=== PATIENT | male | born 1950 | race Caucasian/White ===

== ENCOUNTER 2016-08-14 11:52 | Inpatient (IN) ==
--- NOTE | 2016-08-14 11:56 | Emergency Department Note ---
Disposition Clinical Impression: COPD exacerbation, Hypoxia, Community acquired pneumonia Disposition: Admitted As Inpatient Condition: Fair Referrals: Herlinda Muller DO [Primary Care Provider] - Forms: ED Satisfaction Letter SOB HPI - General Chief Complaint: ED Chest Pain Stated Complaint: short winded, fever,fmd advised to go to er, ekg Time Seen by Provider: 08/14/16 11:55 Source: patient Mode of arrival: private vehicle Limitations: no limitations Nursing Notes Reviewed: Yes Vital Signs Reviewed: Yes - History of Present Illness Patient relates he has been fighting a cough and congestion for about 9 weeks there has been worse the last month and severe for the last week. He states he has a wet cough is productive of copious phlegm and he states it has been green to yellow. With this he has had progressive shortness of breath as well as dyspnea on exertion. He states he can only walk about 100 feet before he needs to rest. Throughout this he has had some dull chest pain that is sore with coughing. He denies any lower extremity swelling, pain or mobilization. He denies any respiratory episodes like this before and denies history of COPD or emphysema. He has not been having fevers, chills or sweats. He states he has been exposed to several others with similar problems area he states his ex- and her sister has been having the same problem. He did see his primary care provider today, Herlinda Muller D.O., who ordered who ordered outpatient EKG, x -ray and laboratory. He had refused to go to the emergency Department from the office but has decided to present here after he has had his outpatient testing completed. We have contacted to his physician's office for a copy of his EKG. Patient arrives here with a tight, congested cough and a room air oxygen saturation of 88%. Pt Subjective Complaint: shortness of breath, cough Onset (ago): week(s) Severity: moderate, severe Consistency/Duration: gradually worsening Improves with: rest Worsens with: exertion, movement, coughing Associated symptoms: Reports: chest pain, pain with inspiration, cough, wheezing , sputum production. Denies: fever, orthopnea, lower extremity pain, polyuria, polydipsia, parasthesias, palpitations, hemoptysis, diaphoresis, nausea/vomiting , syncope, abdominal pain, rash Treatment prior to arrival: none Cough present: Yes Cough Description: Voluntary, Productive, Moist, Hacking, Rattling Cough Frequency: Intermittent Sputum production: Yes Sputum Amount: Moderate Sputum Color: Yellow, Green - Related Data Home oxygen amount: none Home Medications Medication Instructions Recorded Confirmed Albuterol Sulfate [Albuterol 2 IH Q4HR 08/14/16 Inhaler] Carvedilol 12.5 mg PO BID 08/14/16 08/14/16 Gemfibrozil [Lopid] 600 mg PO BIDWM 08/14/16 08/14/16 GuaiFENesin ER [Mucinex] 600 mg PO BID 08/14/16 08/14/16 Insulin ASPART [Novolog Flexpen] unit SQ TID 08/14/16 Lisinopril [Zestril] 40 mg PO DAILY 08/14/16 08/14/16 Metformin HCl [Fortamet] 500 mg PO BID 08/14/16 08/14/16 Pravastatin Sodium [Pravachol] 40 mg PO DAILY 08/14/16 08/14/16 Pregabalin [Lyrica] 100 mg PO BID 08/14/16 08/14/16 SitaGLIPtin [Januvia] 100 mg PO DAILY 08/14/16 08/14/16 hydroCHLOROthiazide 25 mg PO DAILY 08/14/16 08/14/16 [Hydrochlorothiazide] predniSONE [Prednisone] 50 mg PO DAILY 08/14/16 08/14/16 Previous Rx's Medication Instructions Recorded Montelukast [Singulair] 10 mg PO DAILY #20 tablet 06/26/16 Allergies Allergy/AdvReac Type Severity Reaction Status Date / Time No Known Allergies Allergy Verified 08/14/16 11:55 All systems ED: reviewed and negative except as stated. Past Medical History - Past Medical History Attestation: Yes The following information was validated with the patient. Source: patient, old records reviewed, nursing notes reviewed Medical history: Reports: coronary artery disease, diabetes, hyperlipidemia, hypertension, myocardial infarction (2009), renal disease, other (Obesity, polio with residual right leg deficits and chronic pain, restless leg syndrome) . Denies: asthma, COPD, DVT, pulmonary embolus Surgical history: Reports: angioplasty/stent (2009) Psychiatric history: Reports: no psych history - Social History Smoking Status: Current every day smoker Smokeless Tobacco Status: No Alcohol use: Reports: none Drug use: Reports: none Physical Exam - General Limitations: no limitations General appearance: alert, in distress - Head Head exam: atraumatic, normocephalic, normal inspection - Eye Eye exam: Present: normal appearance, PERRL, EOMI. Absent: scleral icterus, conjunctival injection - ENT ENT exam: normal exam, normal oropharynx, mucous membranes moist - Neck Neck exam: Present: normal inspection, full ROM, trachea midline - Chest Chest inspection: Present: normal inspection, symmetric chest wall rise. Absent : tenderness - Respiratory Respiratory exam: Present: respiratory distress, wheezes, prolonged expiratory phase. Absent: accessory muscle use - Cardiovascular Cardiovascular exam: Present: regular rate, normal rhythm, normal heart sounds. Absent: tachycardia - Abdominal Exam Abdominal exam: Present: soft, Non-Tender, normal bowel sounds. Absent: tenderness, distention, guarding, rebound, rigidity - Extremities Exam Extremities exam: Present: normal inspection, full ROM, normal capillary refill. Absent: tenderness, pedal edema, calf tenderness - Expanded Lower Extremity Exam Neurovascular/Tendon exam: Present: normal capillary refill. Absent: motor deficit, sensory deficit, tendon deficit Gait: not tested/not observed (Patient arrives from x-ray in a wheelchair. He did transfer to the bed without difficulty.) - Back Exam Back exam: Present: normal inspection, full ROM. Absent: tenderness, CVA tenderness (R), CVA tenderness (L), vertebral tenderness - Neurological Exam Neurological exam: Present: alert, oriented X3 - Psychiatric Psychiatric exam: Present: normal affect, normal mood - Skin Skin exam: Present: warm, dry, intact, normal color. Absent: rash, diaphoresis , pallor Course Course Narrative: 1330: With return of all labs and imaging, care is discussed with the patient and with Dr. Grant. Verbal orders are taken for the patient's observation to the hospital. Vital Signs Temperature 98.8 F 08/14/16 11:56 Pulse Rate 90 08/14/16 11:56 Respiratory Rate 20 08/14/16 11:56 Blood Pressure 95/56 08/14/16 11:56 O2 Sat by Pulse Oximetry 92 08/14/16 11:56 Temperature 98.8 F 08/14/16 12:02 Pulse Rate 79 08/14/16 13:47 Respiratory Rate 18 08/14/16 13:47 Blood Pressure 103/60 08/14/16 13:47 O2 Sat by Pulse Oximetry 96 08/14/16 13:47 Oxygen Delivery Oxygen Delivery Nasal Cannula Shortness of Breath/Dyspnea - Differential Diagnosis Likely: acute exacerbation of chronic obstructive airways disease, pneumonia, asthma with exacerbation - Medical Records Medical records reviewed: Yes I reviewed the patient's medical records. - Lab Data Lab results reviewed: Yes I reviewed the patient's lab results. Lab results narrative: Patient's lab drawn just prior to arrival shows a white count 11.4, hemoglobin 0.9 and platelets of 342. Chemistries are remarkable for a creatinine of 1.91 which is a little higher than his usual. He has an ALT of 8. I have added blood cultures, lactic acid and troponin to his laboratories. Lab Results 08/14/16 08/14/16 Range/Units 11:35 12:06 VBG Lactic Acid 1.7 (0.5-2.2) mmol/L Troponin I 0.03 (0-0.03) ng/mL - Radiology Data Radiology results reviewed: Yes I reviewed the patient's radiology results. 2 view chest x-ray is performed just prior to arrival to department. This shows patchiness in the right lower lung without acute effusion, pneumothorax, foreign body or heart failure. The cardiac silhouette is normal. I do not see abnormality to the osseous structures of the chest. This is on my interpretation. Radiology impression: XR/XR chest 2V IMPRESSION: Right lower lobe pneumonia and probable tiny right pleural effusion. Recommend follow-up imaging to confirm resolution D/ / Bulmaro Eugene MD / Bulmaro Eugene MD - EKG Data EKG attestation: Yes I reviewed and interpreted this EKG. EKG shows normal: Reports: sinus rhythm, axis, intervals, QRS complexes, ST-T waves Rate: Reports: normal (85) Interpretation: Reports: no acute changes (Baseline artifact), unchanged when compared to prior tracing (date) (06/29/2016)
[2016-08-14] MEDS ORDERED: Ipratropium/Albuterol Neb 3 ML IH ONE (12:07)
[2016-08-14] MEDS ORDERED: methylPREDNISolone 125 MG/2 ML VIAL IVP ONE (12:07)
[2016-08-14] MEDS ORDERED: Levofloxacin 500 MG/100 ML 500 MG/100 ML BAG IVPB SCH (12:08)
[2016-08-14] MEDS ORDERED: 0.9 % Sodium Chloride 1,000 ML IVC SCH ×2 (12:15→14:28)
[2016-08-14] MEDS ORDERED: *HR* Dextrose 50 % in Water (Syg) 50 ML SYRINGE IVP PRN (14:28)
[2016-08-14] MEDS ORDERED: Dextrose Gel 15 GM PO PRN ×2 (14:28)
[2016-08-14] MEDS ORDERED: D5% in Water 1,000 ML IVC PRN (14:28)
[2016-08-14] MEDS ORDERED: Naloxone 0.4 MG/ML INJ IVP PRN (14:28)
[2016-08-14] MEDS ORDERED: Ondansetron 4 MG/2 ML VIAL IVP PRN (14:28)
[2016-08-14] MEDS ORDERED: Acetaminophen 325 MG TABLET PO PRN (14:28)
[2016-08-14] MEDS ORDERED: Albuterol 2.5 MG/3 ML NEBULIZER IH PRN (14:28)
[2016-08-14] MEDS ORDERED: MOM Conc 10 ML UD.LIQ PO PRN (14:28)
[2016-08-14] MEDS ORDERED: Ipratropium/Albuterol Neb 3 ML IH SCH (16:00)
[2016-08-14] MEDS: Insulin LISPRO 300 UNITS/3 ML VIAL SQ SCH ×2 (16:28→20:16)
[2016-08-14] MEDS: predniSONE 20 MG TABLET PO SCH (16:29)
--- NOTE | 2016-08-14 19:23 | Internal Med History&Physical ---
Date of Encounter: 08/14/16 Time of Encounter: 18:50 Assessment and Plan (1) Community acquired pneumonia Current visit: Yes Status: Acute He has been started on Levaquin. I will add lactobacillus. Will order chest CT to further evaluate. (2) COPD (chronic obstructive pulmonary disease) Current visit: Yes Status: Chronic Presumed. He has not had PFTs. Will order chest CT as per above. Will order room air oximetry prior to discharge. Qualifiers: COPD type: unspecified COPD Qualified Code(s): J44.9 - Chronic obstructive pulmonary disease, unspecified (3) CKD (chronic kidney disease) stage 3, GFR 30-59 ml/min Current visit: Yes Status: Acute We will monitor renal indices periodically. (4) Anemia Current visit: Yes Status: Acute Suspect secondary to chronic kidney disease with superimposed aspirin and Plavix use. We will order anemia testing in a.m. Qualifiers: Anemia type: unspecified type Qualified Code(s): D64.9 - Anemia, unspecified (5) DM type 2 (diabetes mellitus, type 2) Current visit: Yes Status: Chronic We will order hemoglobin A1c. Continue home diabetic regimen and do Accu-Cheks with SSI. 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 Vuong is a 66 year old male who came to emergency room stating he had increased dyspnea with cough productive of green-yellow sputum for 2-3 weeks. He had sensation of chills with fever at home. He was evaluated in emergency room with right lower lobe pneumonia seen on chest x-ray. He was admitted to [facility] floor for ongoing care needs. He denies previous episode of pneumonia. His respiratory history is significant for having smoked since age 8 up to one and half packs per day. He denies diagnosis of COPD/emphysema but has not had PFTs. He states he was diagnosed with SERAFIN but could not afford [id number] BiPAP at the time of the testing approximately 6 years ago. Past Med Surg Social Fam HX - Past Medical History Medical history: coronary artery disease, diabetes, hyperlipidemia, hypertension , myocardial infarction, renal disease, other Psychiatric history: no psych history - Past Surgical History Surgical History: angioplasty/stent - Social History Smoking Status: Current every day smoker Packs per day: 1 Smokeless Tobacco Status: No Alcohol use: none Drug use: none Internal Medicine - H&P: Meds Montelukast [Singulair] 10 mg PO DAILY #20 tablet 06/26/16 [Rx] Albuterol Sulfate [Albuterol Inhaler] 2 IH Q4HR 08/14/16 [History] Carvedilol 12.5 mg PO BID 08/14/16 [History] Gemfibrozil [Lopid] 600 mg PO BIDWM 08/14/16 [History] GuaiFENesin ER [Mucinex] 600 mg PO BID 08/14/16 [History] Insulin ASPART [Novolog Flexpen] unit SQ TID 08/14/16 [History] Lisinopril [Zestril] 40 mg PO DAILY 08/14/16 [History] Metformin HCl [Fortamet] 500 mg PO BID 08/14/16 [History] Pravastatin Sodium [Pravachol] 40 mg PO DAILY 08/14/16 [History] Pregabalin [Lyrica] 100 mg PO BID 08/14/16 [History] SitaGLIPtin [Januvia] 100 mg PO DAILY 08/14/16 [History] hydroCHLOROthiazide [Hydrochlorothiazide] 25 mg PO DAILY 08/14/16 [History] predniSONE [Prednisone] 50 mg PO DAILY 08/14/16 [History] Allergies No Known Allergies Allergy (Verified 08/14/16 11:55) All Systems PM: A 10-system review of systems was performed and is negative for pertinent findings except as documented above in the HPI. Review of systems: Gen.: He states his weight has been stable past few months Cardiovascular: Has history of hypertension and known ASHD status post OK 2009 with a single stent placed. He has not had a follow-up heart catheter or stress test since then. He had echocardiogram 01/17/2015 which showed LVEF of 60-65% with mild LV diastolic dysfunction. There was no significant valvular abnormality and no evidence of pulmonary hypertension. He states he has carotid stenosis but is uncertain of the details. He is being treated medically with aspirin and Plavix. He denies DVT or pulmonary embolus Respiratory: As per history of present illness GI: He denies disorders of his liver gallbladder or exocrine pancreas. 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 He was found to have cysts on his kidneys on January 2015 abdominal/pelvis CT. Neurologic: He states he has RLS. He claims he had polio affecting his right leg in childhood. He denies large distribution strokes or seizures Endocrine: He was diagnosed with DM 2 approximately 2006. He has hyperlipidemia but denies thyroid disease Hematology/oncology: He had anemia on blood work in emergency room. He denied previous knowledge of anemia. He denies internal malignancy. Psychiatric: He has diagnoses of anxiety. He had 3 sisters within the last 4 months and feels sad but does not take medication for depression. He denies other mental health diagnoses Musk skeletal: Denies arthritis gout or other bone joint or muscle disorders. - Constitutional Vitals: Temp Pulse Resp BP Pulse Ox 98.4 F 85 18 132/72 92 08/14/16 18:58 08/14/16 18:58 08/14/16 18:58 08/14/16 18:58 08/14/16 18:58 Exam: Gen.: He is a well-developed well-nourished male who appears in minimal distress at present time. HEENT: Head is atraumatic and normocephalic. Eyes: EOMI. There is no scleral icterus. Mouth: Mucosa is moist. Neck: Supple and nontender. There is no thyromegaly or adenopathy noted. Heart: Regular without murmurs gallops or ectopics. Lungs: No wheezes or crackles are heard. Abdomen: Soft and nontender. No masses or guarding are noted. Extremities: There is no cyanosis edema or clubbing noted. Dorsalis pedis and posterior tibial pulses are trace palpable bilaterally. Neurologic: Mental status: He is talkative and a good historian. Cranial nerves : Smile is symmetric. Forehead wrinkles bilaterally. Tongue protrudes midline. EOMI. Motor: There is no pronator drift. Cerebellar: Finger to nose is intact bilaterally. Skin: Warm and dry
[2016-08-14] MEDS: Pregabalin 50 MG CAPSULE PO SCH (20:16)
[2016-08-14] MEDS ORDERED: *HR* Metformin 500 MG TABLET PO SCH (21:00)
[2016-08-14] MEDS ORDERED: Insulin DETEMIR 100 UNIT/ML per UNIT SQ ONE (21:00)
[2016-08-15] MEDS ORDERED: Insulin Human Regular 20 UNIT in 0.9 % Sodium Chloride 10 ML IV ONE ×4 (00:04→02:09)
[2016-08-15] MEDS ORDERED: Insulin LISPRO 300 UNITS/3 ML VIAL SQ ONE (00:11)
[2016-08-15] MEDS ORDERED: Insulin Human Regular 300 UNIT/3 ML per UNIT IV ONE ×2 (00:12→02:15)
[2016-08-15] MEDS ORDERED: Insulin DETEMIR 100 UNIT/ML per UNIT SQ ONE ×2 (00:30→02:05)
[2016-08-15] MEDS ORDERED: Pregabalin 50 MG CAPSULE PO STA (04:46)
[2016-08-15] MEDS ORDERED: traMADol 50 MG TABLET PO STA (04:48)
[2016-08-15] MEDS: *HR* Enoxaparin 30 MG/0.3 ML SYRINGE SQ SCH (05:12)
[2016-08-15 06:37] LABS: Basophils % 0.2 %; Hematocrit 32.7 % (37.5-50.1); Hemoglobin 10.8 g/dL (12.9-16.9); Immature Granulocytes % 1.4 % (0-4); Lymphocytes # 0.8 K/mcL (0.6-4.6); Lymphocytes % 7.9 %; Mean Corpuscular Hemoglobin 29.3 pg (28.0-33.3); Mean Corpuscular Volume 88.9 fL (83.0-100.0); Mean Platelet Volume 10.2 fL (9.4-12.4); Monocytes # 0.4 K/mcL (0.0-1.3); Monocytes % 3.8 %; Neutrophils # 8.8 K/mcL (1.6-8.9); Platelet Count 341 K/mcL (140-400); Red Blood Count 3.68 M/mcL (4.19-5.50); Red Cell Distribution Width 14.7 % (11.5-14.5); Segmented Neutrophils % 86.7 %
[2016-08-15 06:52] LABS: Albumin 2.7 g/dL (3.5-5.0); Albumin/Globulin Ratio 0.5 (1.1-2.2); Bilirubin,Total 0.5 mg/dL (0.2-1.2); Calcium 8.6 mg/dL (8.6-10.8); Magnesium 1.9 mg/dL (1.6-2.6); Potassium 4.4 mEq/L (3.5-4.5); Total Protein 7.7 g/dL (6.0-8.3)
[2016-08-15 07:13] LABS: Thyroid Stimulating Hormone 0.371 mcIU/mL (0.350-4.840)
[2016-08-15] MEDS: predniSONE 20 MG TABLET PO SCH ×2 (07:53→16:27)
[2016-08-15] MEDS: Pregabalin 50 MG CAPSULE PO SCH ×2 (07:53→20:51)
[2016-08-15] MEDS: Insulin LISPRO 300 UNITS/3 ML VIAL SQ SCH ×4 (07:56→20:43)
[2016-08-15] MEDS ORDERED: Lisinopril 20 MG TABLET PO SCH (09:00)
[2016-08-15] MEDS ORDERED: hydroCHLOROthiazide 25 MG TABLET PO SCH (09:00)
[2016-08-15] MEDS ORDERED: *HR* SitaGLIPtin 25 MG TABLET PO SCH ×2 (09:00)
[2016-08-15 09:02] LABS: Hemoglobin A1C 13.1 %
[2016-08-15 10:05] LABS: Folate 11.1 ng/mL (7.0-31.4)
--- NOTE | 2016-08-15 15:35 | Internal Med Progress Note ---
Date of Encounter: 08/15/16 Time of Encounter: 15:25 - Assessment and plan (1) Community acquired pneumonia Current Visit: Yes Status: Acute Assessment and plan: August 15. Continue Levaquin and lactobacillus. (2) COPD (chronic obstructive pulmonary disease) Current Visit: Yes Status: Chronic Assessment and plan: August 15. Continue present regimen. We will check room air oximetry prior to discharge. Qualifiers: COPD type: unspecified COPD Qualified Code(s): J44.9 - Chronic obstructive pulmonary disease, unspecified (3) CKD (chronic kidney disease) stage 3, GFR 30-59 ml/min Current Visit: Yes Status: Chronic Assessment and plan: August 15. Continue to monitor renal indices. (4) Anemia Current Visit: Yes Status: Acute Assessment and plan: August 15. Anemia testing showed no factor deficiency. Qualifiers: Anemia type: unspecified type Qualified Code(s): D64.9 - Anemia, unspecified (5) DM type 2 (diabetes mellitus, type 2) Current Visit: Yes Status: Chronic Assessment and plan: August 15. Poor control with hemoglobin A1c 13.1%. Will increase Levemir and decrease prednisone. Qualifiers: Diabetes mellitus complication status: with kidney complications Diabetes mellitus complication detail: with chronic kidney disease Diabetes mellitus long-term insulin use: with long-term use Chronic kidney disease stage: stage 3 (moderate) Qualified Code(s): E11.22 - Type 2 diabetes mellitus with diabetic chronic kidney disease; N18.3 - Chronic kidney disease, stage 3 ( moderate); Z79.4 - technician terminal and repeater (current) use of insulin - Subjective Interval history: August 15. He states he had a "rough night" because of leg cramps. He does not complain of dyspnea. - Constitutional Vitals: Temp Pulse Resp BP Pulse Ox 97.5 F L 74 16 99/60 98 08/15/16 10:57 08/15/16 10:57 08/15/16 10:57 08/15/16 10:57 08/15/16 10:57 Exam: He is resting comfortably on the side of bed and appears in no acute distress. His affect is bright and cheerful. I reviewed his medications and lab results. I reviewed his chest CT report. Internal Medicine: Result - Labs CBC & Chem 7: 08/15/16 04:25 08/15/16 04:25 Labs: Short CBC 08/15/16 Range/Units 04:25 WBC 10.2 (4.3-11.1) K/mcL Hgb 10.8 L (12.9-16.9) g/dL Hct 32.7 L (37.5-50.1) % Plt Count 341 (140-400) K/mcL Neutrophils # 8.8 (1.6-8.9) K/mcL BMP 08/14/16 08/15/16 08/15/16 23:25 01:25 04:25 Sodium 135 L Potassium 4.4 Chloride 97 L Carbon Dioxide 18 L BUN 41 H D Creatinine 2.70 H Glucose 751 H* 678 H* 392 H Calcium 8.6 Liver Function 08/15/16 Range/Units 04:25 Total Bilirubin 0.5 (0.2-1.2) mg/dL AST 9 (5-34) Units/L ALT 8 (0-55) Units/L Alkaline Phosphatase 134 H (38-126) Units/L Albumin 2.7 L (3.5-5.0) g/dL Consult Discharge Plan - Plan Referrals: Herlinda Muller DO [Primary Care Provider] - 1 week
[2016-08-15] MEDS ORDERED: *HR* HYDROcodone/Acet 5/325 mg TABLET PO PRN (15:41)
[2016-08-15] MEDS ORDERED: Insulin DETEMIR 100 UNIT/ML X5UNITS SQ SCH ×2 (21:00)
[2016-08-16] MEDS: *HR* Enoxaparin 30 MG/0.3 ML SYRINGE SQ SCH (06:05)
[2016-08-16 06:24] LABS: Basophils % 0.2 %; Hematocrit 31.9 % (37.5-50.1); Hemoglobin 10.4 g/dL (12.9-16.9); Immature Granulocytes % 0.4 % (0-4); Lymphocytes % 9.1 %; Mean Corpuscular HGB Conc 32.6 g/dL (31.6-35.5); Mean Corpuscular Hemoglobin 29.2 pg (28.0-33.3); Mean Corpuscular Volume 89.6 fL (83.0-100.0); Mean Platelet Volume 10.1 fL (9.4-12.4); Monocytes # 0.6 K/mcL (0.0-1.3); Monocytes % 4.4 %; Neutrophils # 10.8 K/mcL (1.6-8.9); Platelet Count 343 K/mcL (140-400); Red Blood Count 3.56 M/mcL (4.19-5.50); Red Cell Distribution Width 14.6 % (11.5-14.5); Segmented Neutrophils % 85.9 %
[2016-08-16 06:47] LABS: Calcium 8.3 mg/dL (8.6-10.8); Potassium 4.6 mEq/L (3.5-4.5)
[2016-08-16 07:00] LABS: Lymphocytes # 1.2 K/mcL (0.6-4.6)
[2016-08-16 07:12] VITALS: BP 132/77
[2016-08-16] MEDS: Insulin LISPRO 300 UNITS/3 ML VIAL SQ SCH (07:46)
[2016-08-16] MEDS: predniSONE 20 MG TABLET PO SCH (07:47)
[2016-08-16] MEDS: Pregabalin 50 MG CAPSULE PO SCH (07:49)
--- NOTE | 2016-08-16 10:11 | Discharge Summary ---
Date of Encounter: 08/16/16 Time of Encounter: 09:50 - Discharge Diagnosis (1) Community acquired pneumonia Priority: Primary Status: Acute (2) COPD (chronic obstructive pulmonary disease) Priority: Secondary Status: Chronic Qualifiers: COPD type: unspecified COPD Qualified Code(s): J44.9 - Chronic obstructive pulmonary disease, unspecified (3) CKD (chronic kidney disease) stage 3, GFR 30-59 ml/min Priority: Secondary Status: Chronic (4) Anemia Priority: Secondary Status: Acute Qualifiers: Anemia type: unspecified type Qualified Code(s): D64.9 - Anemia, unspecified (5) DM type 2 (diabetes mellitus, type 2) Priority: Secondary Status: Chronic Qualifiers: Diabetes mellitus complication status: with kidney complications Diabetes mellitus complication detail: with chronic kidney disease Diabetes mellitus intermediate insulin use: with termite helper use Chronic kidney disease stage: stage 3 (moderate) Qualified Code(s): E11.22 - Type 2 diabetes mellitus with diabetic chronic kidney disease; N18.3 - Chronic kidney disease, stage 3 ( moderate); Z79.4 - group home (current) use of insulin - Discharge Medications Prescriptions: Insulin Glargine [Lantus] 40 unit SQ HS 30 Days Lactobacillus [Culturelle] 1 each PO BID #10 cap.sprink levoFLOXacin [Levaquin] 500 mg PO DAILY #5 tablet PredniSONE [Deltasone] 10 mg PO BID #5 tablet Home Medications: Montelukast [Singulair] 10 mg PO DAILY #20 tablet 06/26/16 [Rx] Albuterol Sulfate [Albuterol Inhaler] 2 IH Q4HR 08/14/16 [History] Carvedilol 12.5 mg PO BID 08/14/16 [History] Gemfibrozil [Lopid] 600 mg PO BIDWM 08/14/16 [History] GuaiFENesin ER [Mucinex] 600 mg PO BID 08/14/16 [History] Insulin ASPART [Novolog Flexpen] unit SQ TID 08/14/16 [History] Lisinopril [Zestril] 40 mg PO DAILY 08/14/16 [History] Metformin HCl [Fortamet] 500 mg PO BID 08/14/16 [History] Pravastatin Sodium [Pravachol] 40 mg PO DAILY 08/14/16 [History] Pregabalin [Lyrica] 100 mg PO BID 08/14/16 [History] SitaGLIPtin [Januvia] 100 mg PO DAILY 08/14/16 [History] Insulin Glargine [Lantus] 40 unit SQ HS 30 Days 08/16/16 [Rx] Lactobacillus [Culturelle] 1 each PO BID #10 cap.sprink 08/16/16 [Rx] PredniSONE [Deltasone] 10 mg PO BID #5 tablet 08/16/16 [Rx] levoFLOXacin [Levaquin] 500 mg PO DAILY #5 tablet 08/16/16 [Rx] Allergies/Adverse Reactions: Allergies No Known Allergies Allergy (Verified 08/14/16 11:55) Date of admission: 08/14/16 19:45 Primary care physician: Herlinda Muller DO - Patient Status Disposition: Home, Self-Care Condition: Fair Functional capacity at discharge: independent ambulation Overall status at discharge: patient is progressing back to baseline - Discharge Instructions Follow Up With: Herlinda Muller DO [Primary Care Provider] - 1 week - Diet and Activity Activity: resume usual activities as tolerated Diet: diabetic diet Hospital course: Mr. Vuong is a 66 year old male who came to emergency room stating he had increased dyspnea with cough productive of green-yellow sputum for 2-3 weeks. He had sensation of chills with fever at home. He was evaluated in emergency room with right lower lobe pneumonia seen on chest x-ray. He was admitted to [facility] floor for ongoing care needs. Initial orders were written by the emergency room physician. I saw him on August 14 and performed the history and physical. He was started empirically on Levaquin. I added lactobacillus. A chest CT was done for further evaluation. There was bilateral with right greater than left heterogeneous and nodular infiltrates seen, greatest within the right upper lobe. Follow-up to complete resolution was recommended. I will let his PCP order follow-up imaging as recommended. Blood cultures returned negative. He remained afebrile during his hospital stay. The CBC was 12.6 the day of discharge. He will receive 5 additional days of antibiotic and probiotic at discharge. Creatinine was 2.7 on August 15 but had improved 2.1 with estimated GFR 32 on the day of discharge. He will remain off HCTZ cause of borderline hypotension. Blood sugars improved but remained elevated during his hospital stay. He was started on basal insulin and will continue with Lantus 40 units daily at bedtime at discharge. He will also continue metformin and Januvia. Hemoglobin A1c was markedly elevated at 13.1%. Anemia testing was done and showed iron 71, transferrin saturation 14%, transferrin 350, ferritin 44, B12 257, and folate 11.1. TSH was normal at 0.371. On August 16 he felt stable for discharge home. He will follow with his PCP Dr. Herlinda Muller within 1 week. Room air oximetry will be checked prior to discharge. - Time Spent with Patient Total time spent providing and/or coordinating discharge services: - Constitutional Vitals: Temp Pulse Resp BP Pulse Ox 97.9 F 63 15 132/77 98 08/16/16 07:10 08/16/16 07:10 08/16/16 08:43 08/16/16 07:10 08/16/16 08:43
--- NOTE | 2016-08-16 11:16 | Physician Discharge Referral ---
Home Health/Hosp Referral Info Transfer to: Home Health Attending Provider: Rudy Provider in Charge Post Discharge: PCP (Herlinda Muller D.O.) - Diagnosis (1) Community acquired pneumonia Priority: Primary Status: Acute (2) COPD (chronic obstructive pulmonary disease) Priority: Secondary Status: Chronic (3) CKD (chronic kidney disease) stage 3, GFR 30-59 ml/min Priority: Secondary Status: Chronic (4) Anemia Priority: Secondary Status: Acute (5) DM type 2 (diabetes mellitus, type 2) Priority: Secondary Status: Chronic - Respiratory Orders Smoking Cessation: Smoking cessation has been advised. For more information, call the [place] Tobacco Quit Line at 8-476-SDEY-NOW. - Diet/Nutrition Diet/Nutrition Orders: No Concentrated Sweets - Activity Activity Orders: Ambulate - Services Needed Following services are medically necessary services: Nursing, Home Health Aide, Physical Therapy, Occupational Therapy Home Care Orders: Needs diabetic teaching including administration of insulin and monitoring blood sugars. - Transfer Medications Prescriptions: Insulin Glargine [Lantus] 40 unit SQ HS 30 Days Lactobacillus [Culturelle] 1 each PO BID #10 cap.sprink levoFLOXacin [Levaquin] 500 mg PO DAILY #5 tablet PredniSONE [Deltasone] 10 mg PO BID #5 tablet Home Medications: Montelukast [Singulair] 10 mg PO DAILY #20 tablet 06/26/16 [Rx] Albuterol Sulfate [Albuterol Inhaler] 2 IH Q4HR 08/14/16 [History] Carvedilol 12.5 mg PO BID 08/14/16 [History] Gemfibrozil [Lopid] 600 mg PO BIDWM 08/14/16 [History] GuaiFENesin ER [Mucinex] 600 mg PO BID 08/14/16 [History] Insulin ASPART [Novolog Flexpen] unit SQ TID 08/14/16 [History] Lisinopril [Zestril] 40 mg PO DAILY 08/14/16 [History] Metformin HCl [Fortamet] 500 mg PO BID 08/14/16 [History] Pravastatin Sodium [Pravachol] 40 mg PO DAILY 08/14/16 [History] Pregabalin [Lyrica] 100 mg PO BID 08/14/16 [History] SitaGLIPtin [Januvia] 100 mg PO DAILY 08/14/16 [History] Insulin Glargine [Lantus] 40 unit SQ HS 30 Days 08/16/16 [Rx] Lactobacillus [Culturelle] 1 each PO BID #10 cap.sprink 08/16/16 [Rx] PredniSONE [Deltasone] 10 mg PO BID #5 tablet 08/16/16 [Rx] levoFLOXacin [Levaquin] 500 mg PO DAILY #5 tablet 08/16/16 [Rx] Allergies/Adverse Reactions: Allergies No Known Allergies Allergy (Verified 08/14/16 11:55) Certification: Further, I certify that my clinical findings support that this patient is homebound (i.e. absences from home require considerable and taxing effort and are for medical reasons or congregation services or infrequently or short duration when for other reasons) because: Homebound Reason: Leaving home requires considerable and taxing effort due to condition (Dyspneic on exertion) Attestation: My signature below is to certify that this patient is under my care and that I, or nurse practitioner, or a physician's assistant department manager working with me, has a face-to -face encounter with this patient.
[2016-08-16] MEDS ORDERED: Levofloxacin 500 MG/100 ML 500 MG/100 ML BAG IVPB SCH (12:00)
== END 2016-08-16 13:50 | disposition home or self-care (01) ==
LOC: INPPIK 11:52 → EMEROOPIK 11:52 → INPPIK 14:42
PROVIDERS: ADMIT Internal Medicine; ATTEND Internal Medicine

== ENCOUNTER 2019-10-23 21:04 | Observation (INO) ==
[2019-10-23] MEDS ORDERED: methylPREDNISolone 125 MG/2 ML VIAL IVP ONE (21:22)
[2019-10-23] MEDS ORDERED: Ipratropium/Albuterol Neb 3 ML IH ONE (21:22)
[2019-10-23] MEDS ORDERED: Furosemide 40 MG/4 ML VIAL IVP ONE (21:22)
[2019-10-23 21:45] LABS: ABG Base Excess 0 mEq/L (-2 to 3); ABG HCO3 27 mEq/L (21-27); ABG Oxygen Saturation 89 % (95-98); ABG PCO2 60 mmHg (35-45); ABG PH 7.27 pH Units (7.32-7.45); ABG PO2 67 mmHg (85-104); ABG TCO2 29 mEq/L (20-26)
[2019-10-23 22:13] LABS: Basophils # 0.1 K/mcL (0.0-0.2); Basophils % 0.4 %; Eosinophils # 0.2 K/mcL (0.0-0.6); Eosinophils % 1.8 %; Hematocrit 24.3 % (37.5-50.1); Hemoglobin 7.4 g/dL (12.9-16.9); Lymphocytes # 1.8 K/mcL (0.6-4.6); Lymphocytes % 14.1 %; Mean Corpuscular HGB Conc 30.5 g/dL (31.6-35.5); Mean Corpuscular Hemoglobin 27.8 pg (28.0-33.3); Mean Corpuscular Volume 91.4 fL (83.0-100.0); Mean Platelet Volume 10.7 fL (9.4-12.4); Monocytes # 0.8 K/mcL (0.0-1.3); Monocytes % 6.4 %; Platelet Count 262 K/mcL (140-400); Red Blood Count 2.66 M/mcL (4.19-5.50); Red Cell Distribution Width 15.7 % (11.5-14.5); Segmented Neutrophils % 76.3 %; White Blood Count 12.5 K/mcL (4.3-11.1)
[2019-10-23 22:19] LABS: Neutrophils # 9.5 K/mcL (1.6-8.9)
[2019-10-23 22:21] LABS: INR 1.2; Prothrombin Time 13.2 Seconds (9.4-12.1)
[2019-10-23 22:31] LABS: Albumin 3.7 g/dL (3.5-5.7); Albumin/Globulin Ratio 0.9 (1.1-2.2); Bilirubin,Total 0.3 mg/dL (0.3-1.0); Calcium 9.5 mg/dL (8.6-10.3); Globulin 4.1 g/dL (2.4-3.5); Potassium 4.3 mEq/L (3.5-5.1); Total Protein 7.8 g/dL (6.4-8.9)
[2019-10-23 22:32] LABS: Troponin I < 0.03 ng/mL (< 0.04)
[2019-10-23] MEDS ORDERED: cefTRIAXone 1,000 MG in 0.9 % Sodium Chloride Mini Bag 100 ML IVPB ONE (23:21)
[2019-10-23 23:26] LABS: Bilirubin,Urine Negative (Negative); Blood,Urine Moderate (Negative); Clarity,Urine Clear (Clear); Glucose,Urine (UA) 500 mg/dL (Normal); Ketones,Urine Negative (Negative); Leukocyte Esterase,Urine Negative (Negative); Nitrite,Urine Negative (Negative); PH,Urine 5.5 pH Units (5.0-8.0); Protein,Urine >=300 mg/dL (Neg-Trace); Specific Gravity,Urine 1.025 (1.010-1.025); Urobilinogen,Urine Normal (Normal)
[2019-10-23 23:27] LABS: Color,Urine Light Yellow (Yellow)
[2019-10-23 23:34] LABS: Squamous Epithelial Cell,Urine Few per hpf (None-Few); WBC,Urine 0-3 per hpf (0-3)
[2019-10-23 23:43] LABS: ABG Base Excess -1 mEq/L (-2 to 3); ABG HCO3 25 mEq/L (21-27); ABG Oxygen Saturation 89 % (95-98); ABG PCO2 48 mmHg (35-45); ABG PH 7.33 pH Units (7.32-7.45); ABG PO2 61 mmHg (85-104); ABG TCO2 27 mEq/L (20-26)
[2019-10-24 01:25] LABS: ABG Base Excess 0 mEq/L (-2 to 3); ABG HCO3 25 mEq/L (21-27); ABG Oxygen Saturation 87 % (95-98); ABG PCO2 44 mmHg (35-45); ABG PH 7.37 pH Units (7.32-7.45); ABG PO2 55 mmHg (85-104); ABG TCO2 27 mEq/L (20-26)
[2019-10-24] MEDS ORDERED: Azithromycin 500 MG in 0.9 % Sodium Chloride 250 ML IVPB ONE (01:37)
[2019-10-24 04:14] LABS: Adenovirus Not Detected (Not Detect); Coronavirus 229E Not Detected (Not Detect); Coronavirus HKU1 Not Detected (Not Detect); Coronavirus NL63 Not Detected (Not Detect); Coronavirus OC43 Not Detected (Not Detect)
[2019-10-24 04:15] LABS: Bordetella Pertussis Not Detected (Not Detect); Chlamydophila pneumoniae Not Detected (Not Detect); Human Metapneumovirus Not Detected (Not Detect); Human Rhinovirus/Enterovirus Not Detected (Not Detect); Influenza A Subtype 2009 H1 Not Detected (Not Detect); Influenza B Not Detected (Not Detect); Mycoplasma pneumoniae Not Detected (Not Detect); Parainfluenza Virus 1 Not Detected (Not Detect); Parainfluenza Virus 2 Not Detected (Not Detect); Parainfluenza Virus 3 Not Detected (Not Detect); Parainfluenza Virus 4 Not Detected (Not Detect); Respiratory Syncytial Virus Not Detected (Not Detect)
[2019-10-24] MEDS ORDERED: Naloxone 0.4 MG/ML INJ IVP PRN (05:14)
[2019-10-24] MEDS ORDERED: Acetaminophen 325 MG TABLET PO PRN (05:14)
[2019-10-24] MEDS ORDERED: *HR* Dextrose 50 % in Water (Vial) 50 ML VIAL IVP PRN (07:41)
[2019-10-24] MEDS ORDERED: D5% in Water 1,000 ML IVC PRN (07:41)
[2019-10-24] MEDS ORDERED: Dextrose Gel 15 GM/37.5 ML TUBE PO PRN ×2 (07:41)
[2019-10-24] MEDS ORDERED: Insulin LISPRO 300 UNITS/3 ML VIAL SQ SCH ×4 (07:45→21:00)
[2019-10-24] MEDS: Aspirin Enteric Coated 81 MG Tablet PO SCH (08:16)
[2019-10-24] MEDS: Furosemide 40 MG/4 ML VIAL IVP SCH ×2 (08:16→16:18)
[2019-10-24] MEDS: Nicotine 14 MG PATCH.TD24 TD SCH (08:16)
[2019-10-24] MEDS: amLODIPine 5 MG TABLET PO SCH (08:17)
[2019-10-24] MEDS: lisinopriL 20 MG TABLET PO SCH (08:17)
[2019-10-24] MEDS: carvediloL 25 MG TABLET PO SCH ×2 (08:17→16:17)
[2019-10-24] MEDS: Pregabalin 50 MG CAPSULE PO SCH ×2 (08:18→20:42)
[2019-10-24] MEDS: Cholecalciferol (D-3) 1,000 UNIT (25MCG) TABLET PO SCH (08:18)
[2019-10-24] MEDS ORDERED: NON-FORMULARY MEDICATION 1 EACH EACH (Cinnamon Bark [Cinnamon] 500 MG) PO SCH (09:00)
[2019-10-24] MEDS ORDERED: Furosemide 80 MG in 0.9 % Sodium Chloride 50 ML IV SCH (09:00)
[2019-10-24 09:30] LABS: Estimated Average Glucose 217 mg/dl
[2019-10-24] MEDS: Insulin LISPRO 300 UNITS/3 ML VIAL SQ SCH ×2 (12:08→16:18)
[2019-10-24] MEDS: Insulin DETEMIR 100 UNIT/ML X5UNITS SQ SCH ×2 (12:08→20:41)
[2019-10-24] MEDS ORDERED: Perflutren Lipid Microsphere 1.3 ML in 0.9 % Sodium Chloride 8.7 ML IVP PRN (16:19)
[2019-10-25] MEDS: Nicotine 14 MG PATCH.TD24 TD SCH (05:50)
[2019-10-25 07:06] VITALS: BP 142/72
[2019-10-25] MEDS: lisinopriL 20 MG TABLET PO SCH (07:47)
[2019-10-25] MEDS: Aspirin Enteric Coated 81 MG Tablet PO SCH (07:47)
[2019-10-25] MEDS: Furosemide 40 MG/4 ML VIAL IVP SCH (07:48)
[2019-10-25] MEDS: Cholecalciferol (D-3) 1,000 UNIT (25MCG) TABLET PO SCH (07:48)
[2019-10-25] MEDS: amLODIPine 5 MG TABLET PO SCH (07:48)
[2019-10-25] MEDS: carvediloL 25 MG TABLET PO SCH (07:48)
[2019-10-25] MEDS: Pregabalin 50 MG CAPSULE PO SCH (07:48)
[2019-10-25] MEDS: Insulin LISPRO 300 UNITS/3 ML VIAL SQ SCH ×2 (07:54→12:06)
[2019-10-25 08:47] LABS: Hematocrit 22.2 % (37.5-50.1); Hemoglobin 6.8 g/dL (12.9-16.9); Mean Corpuscular HGB Conc 30.6 g/dL (31.6-35.5); Mean Corpuscular Hemoglobin 27.3 pg (28.0-33.3); Mean Corpuscular Volume 89.2 fL (83.0-100.0); Mean Platelet Volume 10.7 fL (9.4-12.4); Platelet Count 267 K/mcL (140-400); Red Blood Count 2.49 M/mcL (4.19-5.50); Red Cell Distribution Width 15.9 % (11.5-14.5)
[2019-10-25 09:03] LABS: Calcium 8.8 mg/dL (8.6-10.3); Magnesium 2.1 mg/dL (1.6-2.6); Potassium 4.7 mEq/L (3.5-5.1)
[2019-10-25] MEDS: Insulin DETEMIR 100 UNIT/ML X5UNITS SQ SCH (09:22)
[2019-10-28] MEDS ORDERED: DULAGLUTIDE SQ SCH (09:00)
== END 2019-10-25 13:55 | disposition short-term general hospital (02) ==
LOC: EMEROOPIK 21:04 → INPPIK 21:04
PROVIDERS: ADMIT Family Medicine; ATTEND Family Medicine